=== PATIENT | female | born 1990 | race African-American/Black ===

== ENCOUNTER 2019-07-07 20:02 | Emergency (ER) | payer BC, MEDICAID ==
[~2019-07-07] VITALS: Ht 172.7 cm; Wt 127.5 kg
[~2019-07-07 20:02] MED LIST: ACET325T14 PO; ASPI1TAB31 PO; CRAN1TAB6 PO; IBUP-1222 PO; OXYC-302 PO; PNV91TAB3 PO
[2019-07-07 21:10] VITALS: BP 129/74
== END 2019-07-07 21:24 | disposition home or self-care (01) ==
LOC: ED 21:00
DX: J06.9 Acute upper respiratory infection, unspecified (principal)
CPT/HCPCS: 71045; 99283

== ENCOUNTER 2019-07-17 16:42 | Emergency (ER) | payer BC ==
[~2019-07-17] VITALS: Ht 172.7 cm; Wt 127.4 kg
[2019-07-17 16:50] VITALS: BP 144/81
== END 2019-07-17 18:05 | disposition home or self-care (01) ==
LOC: ED 17:15
DX: J01.00 Acute maxillary sinusitis, unspecified (principal)
CPT/HCPCS: 99281

== ENCOUNTER 2020-10-01 11:18 | Emergency (ER) | payer BC, OTHER ==
[~2020-10-01] VITALS: Ht 172.7 cm; Wt 129.5 kg
[~2020-10-01 11:18] MED LIST changes: -OXYC-302 PO; +OXYC1TAB14 PO
--- NOTE | 2020-10-01 11:39 | NUR ---
BIB [place] FROM [facility] [place] PT ATE SHELLFISH ABOUT 1030 TO DAY, PT LIPS STARTED SWELLING, HIVES, AND VOMITTING. [facility] [place] GAVE PHENERGAN 25MG IM. PT BECAME LETHARGIC, PIV 20G LEFT HAND STARTED BY [place], BENADRYL 50MG, 350ML NS. FSBG 117. PT SLEEPING, BUT EASILY ARROUSED. A&O X4. FAMILY AT BEDSIDE.
[2020-10-01] MEDS ORDERED: SODIUM CHLORIDE 0.9% 1,000ML IVBOLUS ONE (12:00)
[2020-10-01] MEDS ORDERED: SODIUM CHLORIDE FLUSH 10ML SYR IVF ONE (12:00)
[2020-10-01 12:17] LABS: BASOPHILS % (AUTO) 0 % (0-1); EOSINOPHILS % (AUTO) 1 % (1-7); LYMPHOCYTES % (AUTO) 36 % (22-44); MEAN CORPUSCULAR HEMOGLOBIN 29.4 pg (27.0-34.8); MEAN CORPUSCULAR HGB CONC 33.5 g/dL (32.4-35.8); MEAN PLATELET VOLUME 7.6 fL (7.4-10.4); MONOCYTES % (AUTO) 8 % (2-9); NEUTROPHILS % (AUTO) 55 % (42-75); PLATELET COUNT 292 x10^3/uL (130-400); RED BLOOD COUNT 4.08 x10^6/uL (3.82-5.3); RED CELL DISTRIBUTION WIDTH 14.5 % (9.6-15.2)
[2020-10-01 12:23] VITALS: BP 111/67
--- NOTE | 2020-10-01 12:23 | NUR ---
PT STATES SHE IS FEELING BETTER, BUT STILL "GROGGY". RESP EVEN AND UNLABORED. IVF RUNNING.
[2020-10-01 12:24] LABS: ALANINE AMINOTRANSFERASE 25 U/L (12-78); ALBUMIN 2.6 g/dL (3.4-5.0); ANION GAP 6 mmol/L (5-15); CALCIUM 6.7 mg/dL (8.5-10.1); CHLORIDE 118 mmol/L (98-107)
[2020-10-01 12:29] LABS: ALKALINE PHOSPHATASE 43 U/L (45-117); BILIRUBIN,TOTAL 0.4 mg/dL (0.2-1.0); CREATININE 0.66 mg/dL (0.55-1.02); TOTAL PROTEIN 5.4 g/dL (6.4-8.2)
--- NOTE | 2020-10-01 12:47 | NUR ---
ALL RESULTS ARE BACK AT THIS TIME. IVF COMPLETE. CHART UP FOR RECHECK.
== END 2020-10-01 13:37 | disposition home or self-care (01) ==
LOC: ED 12:11
DX: L50.0 Allergic urticaria (principal); T78.1XXA Other adverse food reactions, not elsewhere classified, initial encounter; R11.2 Nausea with vomiting, unspecified; Z88.2 Allergy status to sulfonamides; Z90.49 Acquired absence of other specified parts of digestive tract; I10 Essential (primary) hypertension; E11.9 Type 2 diabetes mellitus without complications
CPT/HCPCS: 36415; 80053; 83690; 84703; 85025; 96360; 99283; J7030